=== PATIENT | female | born 1955 | race African-American/Black ===

== ENCOUNTER 2021-12-08 20:11 | Inpatient (IN) | payer OTHER, MEDICAID ==
[~2021-12-08] VITALS: Ht 167.6 cm; Wt 65.3 kg
[~2021-12-08 20:11] MED LIST: ASPI81CH43; GABA250S2 PO; METF-370 PO; METF-489 PO; OMEP20CA74 OR; PHENYTOIN SODIUM PO; RABE20TA19 PO; SIMV-8 PO
[2021-12-08] MEDS ORDERED: IOHEXOL 350 MG/ML 100ML IJ ONE (20:42)
[2021-12-08 22:53] LABS: Basophils # (auto) 0.1 10 ^3/uL (0-0.2); Basophils % (auto) 0.8 % (0.0-2.0); Eosinophils # (auto) 0.3 10 ^3/uL (0-0.8); Eosinophils % (auto) 2.6 % (0.0-7.0); Hematocrit 27.7 % (36.0-46.0); Hemoglobin 8.8 g/dL (12.2-16.2); Lymphocytes # (auto) 1.8 10 ^3/uL (0.4-5.4); Lymphocytes % (auto) 17.5 % (10.0-50.0); Mean Corpuscular Hemoglobin 26.8 pg (28.0-32.0); Mean Corpuscular Volume 83.8 fL (80.0-100.0); Monocytes # (auto) 0.8 10 ^3/uL (0-1.3); Monocytes % (auto) 8.2 % (0.0-12.0); Neutrophils # (auto) 7.1 10 ^3/uL (1.6-8.6); Neutrophils % (auto) 70.9 % (37.0-80.0); Nucleated Red Blood Cells % 0.1 %; Red Cell Distribution Width 16.4 % (11.8-14.3)
[2021-12-08 23:11] LABS: Albumin 1.8 g/dL (3.4-5.0); Potassium 4.1 mmol/L (3.5-5.1)
[2021-12-08 23:16] LABS: BUN/Creatinine Ratio 4.5; Bilirubin, Total 0.2 mg/dL (0.2-1.0); Calcium 8.1 mg/dL (8.5-10.1); Total Protein 6.1 g/dL (6.4-8.2)
[2021-12-08 23:25] LABS: INR 1.05 (0.9-1.15); Partial Thromboplastin Time 24.5 sec (23.6-33.0)
[2021-12-09] MEDS ORDERED: PIPERACILLIN-TAZOB 3.375GM 100 ML IV ONE (08:15)
[2021-12-09] MEDS ORDERED: NITROGLYCERIN 0.4 MG SL TAB SL PRN ×2 (14:30→16:30)
[2021-12-09] MEDS ORDERED: MORPHINE SULFATE INJECTION 2 MG/ML SYRG IV PRN ×2 (14:30→16:30)
[2021-12-09] MEDS ORDERED: VANCOMYCIN PER PHARMACY 0 MG IV SCH (15:45)
[2021-12-09] MEDS ORDERED: VANCOMYCIN 1GM/250ML 250 ML IV ONE (16:00)
[2021-12-09] MEDS ORDERED: DEXTROSE (50%) 50ML SYRG IV PRN (16:00)
[2021-12-09] MEDS ORDERED: FERROUS SULFATE 300 MG/5 ML ORAL LIQ PO ONE (16:15)
[2021-12-09] MEDS ORDERED: PANTOPRAZOLE 40 MG/10 ML VIAL INJ IV ONE (16:15)
[2021-12-09] MEDS ORDERED: METOCLOPRAMIDE HCL 5MG/ml INJ 2ml VIAL IV PRN (16:30)
[2021-12-09] MEDS ORDERED: ALUM & MAG HYDROX-SIMETH LIQ(MAALOX) 30 ML PO PRN (16:30)
[2021-12-09] MEDS: ACCU-CHEK COMFORT CURVE STRIP VI SCH ×2 (17:37→22:35)
[2021-12-09] MEDS: InsuLIN REG 1unit/0.01ml Soln (100units/ml) SC SCH ×2 (17:47→22:00)
[2021-12-09] MEDS: SEVELAMER 800 MG TAB PO SCH (18:49)
[2021-12-09] MEDS: DOCUSATE SOD 100 MG CAP PO PRN (18:50)
[2021-12-09] MEDS: MORPHINE SULFATE INJECTION 2 MG/ML SYRG IV PRN (18:56)
[2021-12-09 21:22] LABS: Cholesterol 88 mg/dL (< 200); HDL Cholesterol 37 mg/dL (40-59); LDL Cholesterol 27 mg/dL (< 100); Triglycerides 112 mg/dL (< 150)
[2021-12-09 22:00] VITALS: BP 153/79
[2021-12-09] MEDS: PHENYTOIN SODIUM 100 MG CAP PO SCH (22:35)
[2021-12-09] MEDS: ATORVASTATIN 20 MG TAB PO SCH (22:35)
[2021-12-09] MEDS: GABAPENTIN 300 MG CAP PO SCH (22:35)
[2021-12-09] MEDS: hydrALAZINE HCL 10 MG TAB PO SCH (22:36)
[2021-12-09] MEDS: PERITONEAL DIALYSIS 2.5% SOLN 2,000 ML IP SCH (23:12)
[2021-12-10] VITALS (7 sets, daily range): BP systolic 112–143; BP diastolic 50–70
[2021-12-10] MEDS: PERITONEAL DIALYSIS 2.5% SOLN 2,000 ML IP SCH ×6 (02:00→19:59)
[2021-12-10 05:09] LABS: Basophils # (auto) 0.1 10 ^3/uL (0-0.2); Eosinophils # (auto) 0.3 10 ^3/uL (0-0.8); Lymphocytes # (auto) 1.2 10 ^3/uL (0.4-5.4); Nucleated Red Blood Cells % 0.1 %; Red Blood Cells 2.54 10^6/uL (4.0-5.20)
[2021-12-10 05:12] LABS: Basophils % (auto) 0.8 % (0.0-2.0); Eosinophils % (auto) 3.8 % (0.0-7.0); Lymphocytes % (auto) 13.6 % (10.0-50.0); Mean Corpuscular Hemoglobin 27.4 pg (28.0-32.0); Mean Corpuscular Hgb Conc. 33.2 g/dL (32.0-36.0); Mean Corpuscular Volume 82.6 fL (80.0-100.0); Monocytes # (auto) 0.7 10 ^3/uL (0-1.3); Monocytes % (auto) 7.5 % (0.0-12.0); Neutrophils # (auto) 6.7 10 ^3/uL (1.6-8.6); Neutrophils % (auto) 74.3 % (37.0-80.0); Red Cell Distribution Width 16.5 % (11.8-14.3); White Blood Cell 9.1 10^3/uL (4.4-10.8)
[2021-12-10 05:27] LABS: INR 1.1 (0.9-1.15); Partial Thromboplastin Time 30.5 sec (23.6-33.0)
[2021-12-10 05:40] LABS: Albumin 1.6 g/dL (3.4-5.0); Anion Gap 8 (5-15); Blood Urea Nitrogen 36 mg/dL (7-18); Calcium 7.5 mg/dL (8.5-10.1); Carbon Dioxide 27 mmol/L (21-32); Chloride 93 mmol/L (98-107); Glucose 217 mg/dL (74-106); Magnesium 2.9 mg/dL (1.6-2.6); Potassium 3.8 mmol/L (3.5-5.1); Sodium 128 mmol/L (136-145)
[2021-12-10 05:47] LABS: Alanine Aminotransferase < 6 U/L (13-56); Alkaline Phosphatase 127 U/L (45-117); Aspartate Aminotransferase 13 U/L (15-37); BUN/Creatinine Ratio 4.1; Bilirubin, Total 0.3 mg/dL (0.2-1.0); GFR African American 6 mL/min; GFR Non-African American 5 mL/min; Phosphorus 2.1 mg/dL (2.5-4.90); Total Protein 5.7 g/dL (6.4-8.2); Uric Acid 5.2 mg/dL (2.6-6.0)
[2021-12-10] MEDS: InsuLIN REG 1unit/0.01ml Soln (100units/ml) SC SCH ×4 (06:02→22:01)
[2021-12-10] MEDS: hydrALAZINE HCL 10 MG TAB PO SCH ×4 (06:07→17:36)
[2021-12-10] MEDS: GABAPENTIN 300 MG CAP PO SCH ×2 (06:07→14:13)
[2021-12-10] MEDS: ACCU-CHEK COMFORT CURVE STRIP VI SCH ×4 (06:08→22:02)
[2021-12-10] MEDS: SEVELAMER 800 MG TAB PO SCH ×3 (08:00→17:36)
[2021-12-10] MEDS: FERROUS SULFATE 300 MG/5 ML ORAL LIQ PO SCH ×3 (08:20→17:36)
[2021-12-10 08:42] LABS: % Iron Saturation 28.3 % (15-50)
[2021-12-10] MEDS: MEROPENEM 500MG IVPB 50 ML IV SCH (09:36)
[2021-12-10] MEDS: PANTOPRAZOLE 40 MG/10 ML VIAL INJ IV SCH (09:36)
[2021-12-10] MEDS: ASPirin 81 mg TAB PO SCH (09:36)
[2021-12-10] MEDS ORDERED: VANCOMYCIN 500 MG in D5W 5% 100 ML IV ONE (12:00)
[2021-12-10 13:13] LABS: Hematocrit 19.8 % (36.0-46.0)
[2021-12-10 13:15] LABS: Hemoglobin 6.7 g/dL (12.2-16.2)
[2021-12-10] MEDS ORDERED: ACETAMINOPHEN 325 MG TAB PO ONE (17:15)
[2021-12-10] MEDS ORDERED: methylPREDNISolone SOD SUCC 125 MG/2 ML VL IV ONE (17:15)
[2021-12-10] MEDS ORDERED: diphenhdrAMINE HCL 50 MG/1 ML VL IV ONE (17:15)
[2021-12-10] MEDS: ATORVASTATIN 20 MG TAB PO SCH (22:01)
[2021-12-10] MEDS: PHENYTOIN SODIUM 100 MG CAP PO SCH (22:01)
[2021-12-10] MEDS: DAKINS QUARTER STR 0.125% (NaHypochlorite) 473 ML TOPICAL SOL TOP SCH (22:21)
[2021-12-11] MEDS: PERITONEAL DIALYSIS 2.5% SOLN 2,000 ML IP SCH ×6 (00:25→20:28)
[2021-12-11] MEDS: hydrALAZINE HCL 10 MG TAB PO SCH ×4 (00:27→17:56)
[2021-12-11 05:00] VITALS: BP 165/76
[2021-12-11] MEDS: InsuLIN REG 1unit/0.01ml Soln (100units/ml) SC SCH ×4 (06:19→22:10)
[2021-12-11] MEDS: ACCU-CHEK COMFORT CURVE STRIP VI SCH ×4 (06:20→22:10)
[2021-12-11] MEDS: SEVELAMER 800 MG TAB PO SCH ×3 (08:00→17:56)
[2021-12-11] MEDS: FERROUS SULFATE 300 MG/5 ML ORAL LIQ PO SCH ×3 (08:00→17:56)
[2021-12-11 09:00] VITALS: BP 158/80
[2021-12-11] MEDS: DAKINS QUARTER STR 0.125% (NaHypochlorite) 473 ML TOPICAL SOL TOP SCH ×2 (10:00→22:09)
[2021-12-11] MEDS: ASPirin 81 mg TAB PO SCH (10:00)
[2021-12-11] MEDS: GABAPENTIN 300 MG CAP PO SCH ×2 (10:00→22:09)
[2021-12-11] MEDS: MEROPENEM 500MG IVPB 50 ML IV SCH (10:00)
[2021-12-11] MEDS: PANTOPRAZOLE 40 MG/10 ML VIAL INJ IV SCH (10:00)
[2021-12-11 11:11] LABS: Basophils # (auto) 0 10 ^3/uL (0-0.2); Basophils % (auto) 0.6 % (0.0-2.0); Eosinophils # (auto) 0 10 ^3/uL (0-0.8); Hematocrit 27.6 % (36.0-46.0); Hemoglobin 9.2 g/dL (12.2-16.2); Lymphocytes # (auto) 0.6 10 ^3/uL (0.4-5.4); Lymphocytes % (auto) 10.3 % (10.0-50.0); Mean Corpuscular Hemoglobin 27.4 pg (28.0-32.0); Mean Corpuscular Hgb Conc. 33.3 g/dL (32.0-36.0); Mean Corpuscular Volume 82.4 fL (80.0-100.0); Monocytes # (auto) 0.1 10 ^3/uL (0-1.3); Monocytes % (auto) 1.2 % (0.0-12.0); Neutrophils # (auto) 5.2 10 ^3/uL (1.6-8.6); Neutrophils % (auto) 87.9 % (37.0-80.0); Nucleated Red Blood Cells % 0.1 %; Red Blood Cells 3.35 10^6/uL (4.0-5.20); Red Cell Distribution Width 16.4 % (11.8-14.3); White Blood Cell 5.9 10^3/uL (4.4-10.8)
[2021-12-11 12:34] LABS: Calcium 8.1 mg/dL (8.5-10.1); Potassium 3.9 mmol/L (3.5-5.1)
[2021-12-11] MEDS: hydrALAZINE HCL 20 MG/ML VL IV PRN (12:53)
[2021-12-11 13:00] VITALS: BP 186/81
[2021-12-11 17:00] VITALS: BP 147/63
[2021-12-11] MEDS ORDERED: VANCOMYCIN 500 MG in D5W 5% 100 ML IV ONE (17:00)
[2021-12-11 17:18] LABS: BUN/Creatinine Ratio 4.1; Calcium 7.7 mg/dL (8.5-10.1); Potassium 3.2 mmol/L (3.5-5.1)
[2021-12-11] MEDS: MORPHINE SULFATE INJECTION 2 MG/ML SYRG IV PRN (17:57)
[2021-12-11 22:00] VITALS: BP 119/48
[2021-12-11] MEDS: PHENYTOIN SODIUM 100 MG CAP PO SCH (22:09)
[2021-12-11] MEDS: ATORVASTATIN 20 MG TAB PO SCH (22:09)
[2021-12-12] MEDS: PERITONEAL DIALYSIS 2.5% SOLN 2,000 ML IP SCH ×6 (00:15→20:31)
[2021-12-12] MEDS: ACCU-CHEK COMFORT CURVE STRIP VI SCH ×4 (06:20→22:01)
[2021-12-12] MEDS: InsuLIN REG 1unit/0.01ml Soln (100units/ml) SC SCH ×4 (06:32→22:10)
[2021-12-12] MEDS: hydrALAZINE HCL 10 MG TAB PO SCH ×4 (06:32→18:00)
[2021-12-12] MEDS: SEVELAMER 800 MG TAB PO SCH ×3 (08:00→18:00)
[2021-12-12] MEDS: FERROUS SULFATE 300 MG/5 ML ORAL LIQ PO SCH ×3 (08:00→18:00)
[2021-12-12 09:00] VITALS: BP 142/67
[2021-12-12] MEDS: MEROPENEM 500MG IVPB 50 ML IV SCH (10:00)
[2021-12-12] MEDS: PANTOPRAZOLE 40 MG/10 ML VIAL INJ IV SCH (10:00)
[2021-12-12] MEDS: GABAPENTIN 300 MG CAP PO SCH ×2 (10:00→22:01)
[2021-12-12] MEDS: DAKINS QUARTER STR 0.125% (NaHypochlorite) 473 ML TOPICAL SOL TOP SCH ×2 (10:00→22:01)
[2021-12-12] MEDS: ASPirin 81 mg TAB PO SCH (10:00)
[2021-12-12 10:51] LABS: Basophils # (auto) 0.1 10 ^3/uL (0-0.2); Basophils % (auto) 1.1 % (0.0-2.0); Eosinophils # (auto) 0.6 10 ^3/uL (0-0.8); Eosinophils % (auto) 5.3 % (0.0-7.0); Hematocrit 26.4 % (36.0-46.0); Hemoglobin 8.8 g/dL (12.2-16.2); Lymphocytes # (auto) 1.7 10 ^3/uL (0.4-5.4); Lymphocytes % (auto) 15.6 % (10.0-50.0); Mean Corpuscular Hemoglobin 27.4 pg (28.0-32.0); Mean Corpuscular Hgb Conc. 33.3 g/dL (32.0-36.0); Mean Corpuscular Volume 82.4 fL (80.0-100.0); Monocytes # (auto) 0.8 10 ^3/uL (0-1.3); Monocytes % (auto) 6.9 % (0.0-12.0); Neutrophils # (auto) 7.7 10 ^3/uL (1.6-8.6); Neutrophils % (auto) 71.1 % (37.0-80.0); Red Cell Distribution Width 16.5 % (11.8-14.3); White Blood Cell 10.9 10^3/uL (4.4-10.8)
[2021-12-12 11:59] LABS: INR 1.16 (0.9-1.15)
[2021-12-12] MEDS: DOCUSATE SOD 100 MG CAP PO PRN (12:10)
[2021-12-12 13:00] VITALS: BP 125/77
[2021-12-12 17:00] VITALS: BP 141/58
[2021-12-12] MEDS: PHENYTOIN SODIUM 100 MG CAP PO SCH (21:57)
[2021-12-12 22:00] VITALS: BP 138/72
[2021-12-12] MEDS: ATORVASTATIN 20 MG TAB PO SCH (22:00)
[2021-12-13] MEDS: PERITONEAL DIALYSIS 2.5% SOLN 2,000 ML IP SCH ×6 (00:04→20:21)
[2021-12-13 05:00] VITALS: BP 126/63
[2021-12-13 05:14] LABS: Basophils # (auto) 0.1 10 ^3/uL (0-0.2); Basophils % (auto) 0.9 % (0.0-2.0); Eosinophils # (auto) 0.5 10 ^3/uL (0-0.8); Eosinophils % (auto) 5.9 % (0.0-7.0); Hematocrit 28.3 % (36.0-46.0); Hemoglobin 9.3 g/dL (12.2-16.2); Lymphocytes # (auto) 1.7 10 ^3/uL (0.4-5.4); Lymphocytes % (auto) 18.8 % (10.0-50.0); Mean Corpuscular Hemoglobin 27.4 pg (28.0-32.0); Mean Corpuscular Hgb Conc. 32.9 g/dL (32.0-36.0); Mean Corpuscular Volume 83.2 fL (80.0-100.0); Monocytes % (auto) 10.7 % (0.0-12.0); Neutrophils # (auto) 5.7 10 ^3/uL (1.6-8.6); Neutrophils % (auto) 63.7 % (37.0-80.0); White Blood Cell 8.9 10^3/uL (4.4-10.8)
[2021-12-13] MEDS: hydrALAZINE HCL 10 MG TAB PO SCH ×4 (06:00→18:00)
[2021-12-13] MEDS: InsuLIN REG 1unit/0.01ml Soln (100units/ml) SC SCH ×4 (06:33→21:51)
[2021-12-13] MEDS: ACCU-CHEK COMFORT CURVE STRIP VI SCH ×4 (06:33→21:52)
[2021-12-13] MEDS ORDERED: KETOROLAC TROMETH 30 MG/ML 1ML VIAL ONE (06:48)
[2021-12-13] MEDS ORDERED: BUPIVACAINE W/ EPINEPH 0.25% INJ 50ML MDV ONE (06:49)
[2021-12-13] MEDS ORDERED: MORPHINE SULF PF 2 MG/2 ML SYRG ONE (06:52)
[2021-12-13] MEDS: SEVELAMER 800 MG TAB PO SCH ×3 (08:00→18:00)
[2021-12-13] MEDS: FERROUS SULFATE 300 MG/5 ML ORAL LIQ PO SCH ×3 (08:00→18:00)
[2021-12-13 09:19] LABS: Potassium 3.5 mmol/L (3.5-5.1)
[2021-12-13 09:23] LABS: BUN/Creatinine Ratio 3.5; Calcium 7.3 mg/dL (8.5-10.1)
[2021-12-13] MEDS: DAKINS QUARTER STR 0.125% (NaHypochlorite) 473 ML TOPICAL SOL TOP SCH ×2 (10:00→21:53)
[2021-12-13] MEDS: MEROPENEM 500MG IVPB 50 ML IV SCH (10:00)
[2021-12-13] MEDS: PANTOPRAZOLE 40 MG/10 ML VIAL INJ IV SCH (10:00)
[2021-12-13] MEDS: ASPirin 81 mg TAB PO SCH (12:24)
[2021-12-13] MEDS: GABAPENTIN 300 MG CAP PO SCH ×2 (12:24→21:53)
[2021-12-13] MEDS: DOCUSATE SOD 100 MG CAP PO PRN (12:25)
[2021-12-13] MEDS: PHENYTOIN SODIUM 100 MG CAP PO SCH (21:52)
[2021-12-13] MEDS: ATORVASTATIN 20 MG TAB PO SCH (21:53)
[2021-12-13 22:00] VITALS: BP 140/53
[2021-12-14] MEDS: PERITONEAL DIALYSIS 2.5% SOLN 2,000 ML IP SCH ×6 (00:31→20:03)
[2021-12-14 05:00] VITALS: BP 121/55
[2021-12-14] MEDS: hydrALAZINE HCL 10 MG TAB PO SCH ×4 (05:08→18:50)
[2021-12-14 05:55] LABS: Basophils # (auto) 0.1 10 ^3/uL (0-0.2); Eosinophils # (auto) 0.5 10 ^3/uL (0-0.8); Eosinophils % (auto) 6.2 % (0.0-7.0); Hemoglobin 7.8 g/dL (12.2-16.2)
[2021-12-14 05:58] LABS: Hematocrit 23.4 % (36.0-46.0); Lymphocytes # (auto) 1.4 10 ^3/uL (0.4-5.4); Lymphocytes % (auto) 16.5 % (10.0-50.0); Mean Corpuscular Hemoglobin 27.6 pg (28.0-32.0); Mean Corpuscular Hgb Conc. 33.5 g/dL (32.0-36.0); Mean Corpuscular Volume 82.5 fL (80.0-100.0); Monocytes % (auto) 11.1 % (0.0-12.0); Neutrophils # (auto) 5.6 10 ^3/uL (1.6-8.6); Neutrophils % (auto) 65.2 % (37.0-80.0); Red Blood Cells 2.83 10^6/uL (4.0-5.20); Red Cell Distribution Width 16.6 % (11.8-14.3); White Blood Cell 8.6 10^3/uL (4.4-10.8)
[2021-12-14 06:03] LABS: Albumin 1.3 g/dL (3.4-5.0); Calcium 7.4 mg/dL (8.5-10.1)
[2021-12-14 06:06] LABS: BUN/Creatinine Ratio 3.3; Bilirubin, Total 0.2 mg/dL (0.2-1.0); Total Protein 4.8 g/dL (6.4-8.2)
[2021-12-14 06:24] LABS: Potassium 2.9 mmol/L (3.5-5.1)
[2021-12-14] MEDS: ACCU-CHEK COMFORT CURVE STRIP VI SCH ×4 (06:35→22:54)
[2021-12-14] MEDS: InsuLIN REG 1unit/0.01ml Soln (100units/ml) SC SCH ×4 (06:37→22:00)
[2021-12-14 08:00] VITALS: BP 101/58
[2021-12-14] MEDS: SEVELAMER 800 MG TAB PO SCH ×4 (08:00→18:46)
[2021-12-14] MEDS: FERROUS SULFATE 300 MG/5 ML ORAL LIQ PO SCH ×4 (08:00→18:46)
[2021-12-14] MEDS: POTASSIUM CHL 20 Meq TABLET PO ONE ×2 (08:00→08:58)
[2021-12-14] MEDS: PANTOPRAZOLE 40 MG/10 ML VIAL INJ IV SCH (08:57)
[2021-12-14] MEDS: MEROPENEM 500MG IVPB 50 ML IV SCH (08:58)
[2021-12-14] MEDS: GABAPENTIN 300 MG CAP PO SCH ×4 (08:58→21:48)
[2021-12-14] MEDS: ASPirin 81 mg TAB PO SCH ×2 (08:58→09:20)
[2021-12-14 09:00] VITALS: BP 101/58
[2021-12-14] MEDS: DAKINS QUARTER STR 0.125% (NaHypochlorite) 473 ML TOPICAL SOL TOP SCH ×2 (09:00→21:48)
[2021-12-14] MEDS ORDERED: VANCOMYCIN 500 MG in D5W 5% 100 ML IV ONE (11:45)
[2021-12-14 13:00] VITALS: BP 103/59
[2021-12-14] MEDS: DOCUSATE SOD 100 MG CAP PO PRN (13:15)
[2021-12-14] MEDS: POTASSIUM CHL 20MEQ/50ML 50 ML IV SCH ×2 (14:03→15:40)
[2021-12-14 15:24] LABS: Hepatitis A Ab IgM Negative; Hepatitis B Core IgM Negative; Hepatitis C Antibody Negative (Negative)
[2021-12-14 17:00] VITALS: BP 140/63
[2021-12-14] MEDS: MORPHINE SULFATE INJECTION 2 MG/ML SYRG IV PRN (21:02)
[2021-12-14] MEDS: PHENYTOIN SODIUM 100 MG CAP PO SCH (21:48)
[2021-12-14] MEDS: ATORVASTATIN 20 MG TAB PO SCH (21:48)
[2021-12-15] VITALS (10 sets, daily range): BP systolic 71–132; BP diastolic 43–68
[2021-12-15] MEDS: PERITONEAL DIALYSIS 2.5% SOLN 2,000 ML IP SCH ×6 (00:12→20:42)
[2021-12-15] MEDS: hydrALAZINE HCL 10 MG TAB PO SCH ×4 (00:22→18:00)
[2021-12-15 06:31] LABS: Albumin 1.4 g/dL (3.4-5.0); BUN/Creatinine Ratio 2.9; Calcium 7.6 mg/dL (8.5-10.1); Potassium 3.1 mmol/L (3.5-5.1)
[2021-12-15 06:34] LABS: Bilirubin, Total 0.2 mg/dL (0.2-1.0); Total Protein 4.9 g/dL (6.4-8.2)
[2021-12-15] MEDS: ACCU-CHEK COMFORT CURVE STRIP VI SCH ×4 (06:48→21:55)
[2021-12-15] MEDS: InsuLIN REG 1unit/0.01ml Soln (100units/ml) SC SCH ×4 (06:50→22:01)
[2021-12-15] MEDS: SEVELAMER 800 MG TAB PO SCH ×4 (08:00→18:03)
[2021-12-15] MEDS: FERROUS SULFATE 300 MG/5 ML ORAL LIQ PO SCH ×4 (08:00→18:04)
[2021-12-15] MEDS: ASPirin 81 mg TAB PO SCH (09:52)
[2021-12-15] MEDS: GABAPENTIN 300 MG CAP PO SCH ×2 (09:52→21:54)
[2021-12-15] MEDS: MEROPENEM 500MG IVPB 50 ML IV SCH (09:52)
[2021-12-15] MEDS: PANTOPRAZOLE 40 MG/10 ML VIAL INJ IV SCH (09:52)
[2021-12-15] MEDS: DAKINS QUARTER STR 0.125% (NaHypochlorite) 473 ML TOPICAL SOL TOP SCH ×2 (10:00→22:00)
[2021-12-15] MEDS ORDERED: TETRACAINE 1% INJ 2 ML VIAL IJ ONE (11:49)
[2021-12-15] MEDS ORDERED: fentaNYL CITRATE 100 MCG/2 ML VL ONE (11:52)
[2021-12-15] MEDS ORDERED: MIDAZOLAM HCL 2MG/2ML 2ml VIAL (1mg/ml) ONE (11:52)
[2021-12-15] MEDS ORDERED: MORPHINE SULF PF 2 MG/2 ML SYRG ONE (11:56)
[2021-12-15] MEDS ORDERED: PROPOFOL 10 MG/ML 20 ML IV ONE (12:33)
[2021-12-15] MEDS ORDERED: PHENYLEPHRINE HCL 10 MG/ML VL ONE ×3 (13:53→13:55)
[2021-12-15] MEDS ORDERED: PHENYLEPHRINE IV 250 ML IV SCH (14:00)
[2021-12-15 14:21] LABS: Basophils # (auto) 0.1 10 ^3/uL (0-0.2); Basophils % (auto) 0.6 % (0.0-2.0); Eosinophils # (auto) 0.7 10 ^3/uL (0-0.8); Eosinophils % (auto) 7.1 % (0.0-7.0); Lymphocytes # (auto) 2.1 10 ^3/uL (0.4-5.4); Lymphocytes % (auto) 22.2 % (10.0-50.0); Mean Corpuscular Hemoglobin 27.8 pg (28.0-32.0); Mean Corpuscular Volume 84.2 fL (80.0-100.0); Monocytes # (auto) 0.9 10 ^3/uL (0-1.3); Monocytes % (auto) 9.6 % (0.0-12.0); Neutrophils # (auto) 5.6 10 ^3/uL (1.6-8.6); Neutrophils % (auto) 60.5 % (37.0-80.0); Red Blood Cells 2.14 10^6/uL (4.0-5.20); Red Cell Distribution Width 16.4 % (11.8-14.3); White Blood Cell 9.3 10^3/uL (4.4-10.8)
[2021-12-15] MEDS ORDERED: ONDANSETRON HCL 4 MG/2 ML VIAL ONE (14:25)
[2021-12-15 14:56] LABS: BUN/Creatinine Ratio 2.9; Calcium 6.7 mg/dL (8.5-10.1)
[2021-12-15 15:23] LABS: Potassium 2.7 mmol/L (3.5-5.1)
[2021-12-15] MEDS ORDERED: POTASSIUM CHL 10MEQ/50ML 50 ML IV ONE (15:30)
[2021-12-15] MEDS ORDERED: ALBUMIN 25% 50 ML IV ONE (18:45)
[2021-12-15] MEDS ORDERED: SODIUM CHLORIDE 0.9% 500 ML IV ONE (18:45)
[2021-12-15 20:07] LABS: Eosinophils # (auto) 0.1 10 ^3/uL (0-0.8); Hemoglobin 7.8 g/dL (12.2-16.2); Lymphocytes # (auto) 0.9 10 ^3/uL (0.4-5.4)
[2021-12-15 20:09] LABS: Basophils # (auto) 0.1 10 ^3/uL (0-0.2); Basophils % (auto) 0.5 % (0.0-2.0); Eosinophils % (auto) 0.9 % (0.0-7.0); Hematocrit 23.6 % (36.0-46.0); Lymphocytes % (auto) 8.8 % (10.0-50.0); Mean Corpuscular Hemoglobin 28.2 pg (28.0-32.0); Mean Corpuscular Hgb Conc. 33.1 g/dL (32.0-36.0); Mean Corpuscular Volume 85.1 fL (80.0-100.0); Monocytes # (auto) 0.6 10 ^3/uL (0-1.3); Neutrophils % (auto) 83.8 % (37.0-80.0); Red Blood Cells 2.77 10^6/uL (4.0-5.20); Red Cell Distribution Width 15.8 % (11.8-14.3); White Blood Cell 10.8 10^3/uL (4.4-10.8)
[2021-12-15] MEDS: PHENYTOIN SODIUM 100 MG CAP PO SCH (20:53)
[2021-12-15] MEDS: ATORVASTATIN 20 MG TAB PO SCH (21:53)
[2021-12-16] VITALS (9 sets, daily range): BP systolic 94–135; BP diastolic 47–82
[2021-12-16] MEDS: PERITONEAL DIALYSIS 2.5% SOLN 2,000 ML IP SCH ×6 (00:38→20:35)
[2021-12-16] MEDS ORDERED: ALBUMIN 25% 100 ML IV ONE (04:30)
[2021-12-16 05:13] LABS: Monocytes # (auto) 1.3 10 ^3/uL (0-1.3); Nucleated Red Blood Cells % 0.1 %; Red Cell Distribution Width 15.9 % (11.8-14.3)
[2021-12-16 05:14] LABS: Basophils # (auto) 0.1 10 ^3/uL (0-0.2); Basophils % (auto) 0.7 % (0.0-2.0); Eosinophils # (auto) 0.5 10 ^3/uL (0-0.8); Eosinophils % (auto) 5.2 % (0.0-7.0); Hematocrit 17.8 % (36.0-46.0); Lymphocytes # (auto) 1.4 10 ^3/uL (0.4-5.4); Lymphocytes % (auto) 13.6 % (10.0-50.0); Mean Corpuscular Hemoglobin 28.6 pg (28.0-32.0); Mean Corpuscular Hgb Conc. 34.3 g/dL (32.0-36.0); Mean Corpuscular Volume 83.4 fL (80.0-100.0); Monocytes % (auto) 12.4 % (0.0-12.0); Neutrophils # (auto) 6.9 10 ^3/uL (1.6-8.6); Neutrophils % (auto) 68.1 % (37.0-80.0); Red Blood Cells 2.13 10^6/uL (4.0-5.20); White Blood Cell 10.1 10^3/uL (4.4-10.8)
[2021-12-16 05:26] LABS: Calcium 7.3 mg/dL (8.5-10.1); Potassium 3.8 mmol/L (3.5-5.1)
[2021-12-16 05:38] LABS: BUN/Creatinine Ratio 3.1
[2021-12-16 05:45] LABS: Hemoglobin 6.1 g/dL (12.2-16.2)
[2021-12-16] MEDS: hydrALAZINE HCL 10 MG TAB PO SCH ×4 (05:48→17:30)
[2021-12-16] MEDS: InsuLIN REG 1unit/0.01ml Soln (100units/ml) SC SCH ×4 (06:34→21:00)
[2021-12-16] MEDS: ACCU-CHEK COMFORT CURVE STRIP VI SCH ×4 (06:43→21:00)
[2021-12-16] MEDS: SEVELAMER 800 MG TAB PO SCH ×4 (08:00→17:31)
[2021-12-16] MEDS: FERROUS SULFATE 300 MG/5 ML ORAL LIQ PO SCH ×4 (08:00→17:30)
[2021-12-16] MEDS: ACETAMINOPHEN 325 MG TAB PO PRN (08:20)
[2021-12-16] MEDS: MEROPENEM 500MG IVPB 50 ML IV SCH (09:47)
[2021-12-16] MEDS: diphenhdrAMINE HCL 50 MG/1 ML VL IV PRN (09:47)
[2021-12-16] MEDS: LORazepam 2MG/ML-1ML VIAL IV PRN (09:47)
[2021-12-16] MEDS: GABAPENTIN 300 MG CAP PO SCH ×2 (10:00→21:00)
[2021-12-16] MEDS: DAKINS QUARTER STR 0.125% (NaHypochlorite) 473 ML TOPICAL SOL TOP SCH ×2 (10:00→20:39)
[2021-12-16] MEDS: PANTOPRAZOLE 40 MG/10 ML VIAL INJ IV SCH (10:00)
[2021-12-16] MEDS: ASPirin 81 mg TAB PO SCH (10:00)
[2021-12-16] MEDS ORDERED: VANCOMYCIN 500 MG in D5W 5% 100 ML IV ONE (14:00)
[2021-12-16] MEDS: ATORVASTATIN 20 MG TAB PO SCH (21:00)
[2021-12-17] VITALS (7 sets, daily range): BP systolic 108–148; BP diastolic 57–71
[2021-12-17] MEDS: PERITONEAL DIALYSIS 2.5% SOLN 2,000 ML IP SCH ×6 (00:14→20:11)
[2021-12-17] MEDS: LORazepam 2MG/ML-1ML VIAL IV PRN (01:37)
[2021-12-17] MEDS: MORPHINE SULFATE INJECTION 2 MG/ML SYRG IV PRN ×3 (02:21→23:03)
[2021-12-17] MEDS: diphenhdrAMINE HCL 50 MG/1 ML VL IV PRN ×2 (03:52→23:09)
[2021-12-17 05:43] LABS: Hemoglobin 7.3 g/dL (12.2-16.2)
[2021-12-17 05:49] LABS: Basophils # (auto) 0.1 10 ^3/uL (0-0.2); Basophils % (auto) 0.4 % (0.0-2.0); Eosinophils % (auto) 8.1 % (0.0-7.0); Hematocrit 22.1 % (36.0-46.0); Lymphocytes # (auto) 1.4 10 ^3/uL (0.4-5.4); Lymphocytes % (auto) 11.1 % (10.0-50.0); Mean Corpuscular Hemoglobin 28.1 pg (28.0-32.0); Monocytes # (auto) 1.4 10 ^3/uL (0-1.3); Monocytes % (auto) 11.2 % (0.0-12.0); Neutrophils # (auto) 8.5 10 ^3/uL (1.6-8.6); Neutrophils % (auto) 69.2 % (37.0-80.0); Red Cell Distribution Width 15.7 % (11.8-14.3); White Blood Cell 12.3 10^3/uL (4.4-10.8)
[2021-12-17 06:15] LABS: Albumin 1.9 g/dL (3.4-5.0); Calcium 7.6 mg/dL (8.5-10.1); Potassium 3.6 mmol/L (3.5-5.1)
[2021-12-17 06:18] LABS: BUN/Creatinine Ratio 2.7
[2021-12-17 06:21] LABS: Bilirubin, Total 0.3 mg/dL (0.2-1.0); Total Protein 4.7 g/dL (6.4-8.2)
[2021-12-17] MEDS: InsuLIN REG 1unit/0.01ml Soln (100units/ml) SC SCH ×4 (06:29→22:00)
[2021-12-17] MEDS: hydrALAZINE HCL 10 MG TAB PO SCH ×4 (06:29→17:44)
[2021-12-17] MEDS: ACCU-CHEK COMFORT CURVE STRIP VI SCH ×4 (06:34→22:03)
[2021-12-17] MEDS: SEVELAMER 800 MG TAB PO SCH ×3 (08:00→17:44)
[2021-12-17] MEDS: FERROUS SULFATE 300 MG/5 ML ORAL LIQ PO SCH ×3 (08:00→17:44)
[2021-12-17] MEDS: DAKINS QUARTER STR 0.125% (NaHypochlorite) 473 ML TOPICAL SOL TOP SCH ×2 (08:13→22:00)
[2021-12-17] MEDS: PANTOPRAZOLE 40 MG/10 ML VIAL INJ IV SCH (08:13)
[2021-12-17] MEDS: GABAPENTIN 300 MG CAP PO SCH ×2 (08:13→22:02)
[2021-12-17] MEDS: ASPirin 81 mg TAB PO SCH (08:13)
[2021-12-17] MEDS: MEROPENEM 500MG IVPB 50 ML IV SCH (08:13)
[2021-12-17] MEDS: ACETAMINOPHEN 325 MG TAB PO PRN (14:28)
[2021-12-17] MEDS: ATORVASTATIN 20 MG TAB PO SCH (22:02)
[2021-12-17] MEDS: LORazepam 0.5 MG TAB PO PRN ×2 (23:05→23:09)
[2021-12-18] VITALS (9 sets, daily range): BP systolic 120–170; BP diastolic 53–75
[2021-12-18] MEDS: PERITONEAL DIALYSIS 2.5% SOLN 2,000 ML IP SCH ×7 (00:14→23:56)
[2021-12-18] MEDS: hydrALAZINE HCL 10 MG TAB PO SCH ×5 (00:16→23:57)
[2021-12-18 05:50] LABS: Basophils # (auto) 0.1 10 ^3/uL (0-0.2); Basophils % (auto) 0.6 % (0.0-2.0); Eosinophils # (auto) 0.5 10 ^3/uL (0-0.8); Eosinophils % (auto) 4.7 % (0.0-7.0); Hemoglobin 8.8 g/dL (12.2-16.2); Lymphocytes # (auto) 1.7 10 ^3/uL (0.4-5.4); Mean Corpuscular Hemoglobin 28.7 pg (28.0-32.0); Mean Corpuscular Hgb Conc. 33.6 g/dL (32.0-36.0); Mean Corpuscular Volume 85.2 fL (80.0-100.0); Monocytes # (auto) 1.4 10 ^3/uL (0-1.3); Monocytes % (auto) 11.9 % (0.0-12.0); Neutrophils # (auto) 7.8 10 ^3/uL (1.6-8.6); Neutrophils % (auto) 67.8 % (37.0-80.0); Red Blood Cells 3.05 10^6/uL (4.0-5.20); Red Cell Distribution Width 15.4 % (11.8-14.3); White Blood Cell 11.5 10^3/uL (4.4-10.8)
[2021-12-18] MEDS: InsuLIN REG 1unit/0.01ml Soln (100units/ml) SC SCH ×4 (06:31→21:05)
[2021-12-18] MEDS: ACCU-CHEK COMFORT CURVE STRIP VI SCH ×4 (06:33→21:04)
[2021-12-18 06:49] LABS: BUN/Creatinine Ratio 2.9; Calcium 7.4 mg/dL (8.5-10.1)
[2021-12-18 07:28] LABS: Potassium 2.8 mmol/L (3.5-5.1)
[2021-12-18] MEDS: SEVELAMER 800 MG TAB PO SCH ×3 (08:06→17:27)
[2021-12-18] MEDS: PANTOPRAZOLE 40 MG/10 ML VIAL INJ IV SCH (08:06)
[2021-12-18] MEDS: ASPirin 81 mg TAB PO SCH (08:06)
[2021-12-18] MEDS: GABAPENTIN 300 MG CAP PO SCH ×2 (08:06→21:11)
[2021-12-18] MEDS: DAKINS QUARTER STR 0.125% (NaHypochlorite) 473 ML TOPICAL SOL TOP SCH ×2 (08:06→21:12)
[2021-12-18] MEDS: MEROPENEM 500MG IVPB 50 ML IV SCH (08:06)
[2021-12-18] MEDS: FERROUS SULFATE 300 MG/5 ML ORAL LIQ PO SCH ×3 (08:06→17:26)
[2021-12-18] MEDS: POTASSIUM CHL 10MEQ/50ML 50 ML IV SCH ×6 (09:45→14:15)
[2021-12-18] MEDS ORDERED: POTASSIUM CHL 10MEQ/50ML 50 ML IV ONE (17:51)
[2021-12-18] MEDS: ATORVASTATIN 20 MG TAB PO SCH (21:11)
[2021-12-18] MEDS: hydrALAZINE HCL 20 MG/ML VL IV PRN (21:43)
[2021-12-19] MEDS: PERITONEAL DIALYSIS 2.5% SOLN 2,000 ML IP SCH ×5 (04:15→20:00)
[2021-12-19 05:00] VITALS: BP 140/61
[2021-12-19 05:41] LABS: Potassium 3.5 mmol/L (3.5-5.1)
[2021-12-19 05:51] LABS: Albumin 1.6 g/dL (3.4-5.0); BUN/Creatinine Ratio 3.1; Bilirubin, Total 0.4 mg/dL (0.2-1.0); Calcium 7.4 mg/dL (8.5-10.1); Total Protein 4.9 g/dL (6.4-8.2)
[2021-12-19] MEDS: InsuLIN REG 1unit/0.01ml Soln (100units/ml) SC SCH ×4 (07:00→22:09)
[2021-12-19] MEDS: hydrALAZINE HCL 10 MG TAB PO SCH ×3 (07:30→17:22)
[2021-12-19] MEDS: ACCU-CHEK COMFORT CURVE STRIP VI SCH ×4 (07:31→22:11)
[2021-12-19] MEDS: DAKINS QUARTER STR 0.125% (NaHypochlorite) 473 ML TOPICAL SOL TOP SCH ×2 (07:50→22:11)
[2021-12-19] MEDS: FERROUS SULFATE 300 MG/5 ML ORAL LIQ PO SCH ×3 (08:02→18:27)
[2021-12-19] MEDS: SEVELAMER 800 MG TAB PO SCH ×3 (08:02→18:27)
[2021-12-19] MEDS: ASPirin 81 mg TAB PO SCH (08:03)
[2021-12-19 09:00] VITALS: BP 129/63
[2021-12-19] MEDS: MEROPENEM 500MG IVPB 50 ML IV SCH (09:47)
[2021-12-19] MEDS: GABAPENTIN 300 MG CAP PO SCH ×2 (09:47→22:04)
[2021-12-19] MEDS: PANTOPRAZOLE 40 MG/10 ML VIAL INJ IV SCH (09:47)
[2021-12-19] MEDS: DOCUSATE SOD 100 MG CAP PO PRN (12:23)
[2021-12-19 12:50] VITALS: BP 123/61
[2021-12-19] MEDS: ACETAMINOPHEN 325 MG TAB PO PRN (14:53)
[2021-12-19 16:42] VITALS: BP 97/48
[2021-12-19] MEDS: ATORVASTATIN 20 MG TAB PO SCH (22:05)
[2021-12-19 22:15] VITALS: BP 128/65
[2021-12-20] MEDS: hydrALAZINE HCL 10 MG TAB PO SCH ×4 (00:25→17:42)
[2021-12-20] MEDS: PERITONEAL DIALYSIS 2.5% SOLN 2,000 ML IP SCH ×6 (00:29→20:04)
[2021-12-20 05:00] VITALS: BP 137/74
[2021-12-20 05:57] LABS: Chloride 102 mmol/L (98-107); Potassium 3.3 mmol/L (3.5-5.1); Sodium 138 mmol/L (136-145)
[2021-12-20 06:02] LABS: Alanine Aminotransferase < 6 U/L (13-56); Albumin 1.6 g/dL (3.4-5.0); Alkaline Phosphatase 101 U/L (45-117); Anion Gap 4 (5-15); Aspartate Aminotransferase 11 U/L (15-37); BUN/Creatinine Ratio 3.2; Bilirubin, Total 0.2 mg/dL (0.2-1.0); Blood Urea Nitrogen 17 mg/dL (7-18); Calcium 7.7 mg/dL (8.5-10.1); Carbon Dioxide 32 mmol/L (21-32); GFR African American 10 mL/min; GFR Non-African American 9 mL/min; Glucose 135 mg/dL (74-106); Total Protein 5.2 g/dL (6.4-8.2)
[2021-12-20] MEDS: InsuLIN REG 1unit/0.01ml Soln (100units/ml) SC SCH ×4 (06:19→21:39)
[2021-12-20] MEDS: ACCU-CHEK COMFORT CURVE STRIP VI SCH ×4 (06:24→22:00)
[2021-12-20] MEDS: DAKINS QUARTER STR 0.125% (NaHypochlorite) 473 ML TOPICAL SOL TOP SCH (07:29)
[2021-12-20] MEDS: FERROUS SULFATE 300 MG/5 ML ORAL LIQ PO SCH ×3 (08:15→17:30)
[2021-12-20] MEDS: SEVELAMER 800 MG TAB PO SCH ×3 (08:15→17:30)
[2021-12-20] MEDS: ASPirin 81 mg TAB PO SCH (08:15)
[2021-12-20 09:00] VITALS: BP 123/60
[2021-12-20] MEDS: PANTOPRAZOLE 40 MG/10 ML VIAL INJ IV SCH (10:39)
[2021-12-20] MEDS: GABAPENTIN 300 MG CAP PO SCH ×2 (10:39→21:31)
[2021-12-20] MEDS: MEROPENEM 500MG IVPB 50 ML IV SCH (10:39)
[2021-12-20] MEDS: DOCUSATE SOD 100 MG CAP PO PRN (10:40)
[2021-12-20] MEDS: ACETAMINOPHEN 325 MG TAB PO PRN (10:40)
[2021-12-20] MEDS: LORazepam 0.5 MG TAB PO PRN (10:40)
[2021-12-20 13:00] VITALS: BP 141/70
[2021-12-20 16:35] VITALS: BP 112/60
[2021-12-20] MEDS: ATORVASTATIN 20 MG TAB PO SCH (21:31)
[2021-12-20] MEDS: PHENYTOIN SODIUM 100 MG CAP PO SCH (21:32)
[2021-12-20 22:00] VITALS: BP 129/65
[2021-12-21] MEDS: DAKINS QUARTER STR 0.125% (NaHypochlorite) 473 ML TOPICAL SOL TOP SCH ×3 (00:30→21:18)
[2021-12-21] MEDS: PERITONEAL DIALYSIS 2.5% SOLN 2,000 ML IP SCH ×6 (00:31→20:56)
[2021-12-21] MEDS: hydrALAZINE HCL 10 MG TAB PO SCH ×4 (00:38→17:05)
[2021-12-21 05:05] VITALS: BP 99/49
[2021-12-21] MEDS: InsuLIN REG 1unit/0.01ml Soln (100units/ml) SC SCH ×4 (07:03→22:05)
[2021-12-21] MEDS: ACCU-CHEK COMFORT CURVE STRIP VI SCH ×4 (07:04→22:05)
[2021-12-21] MEDS: ASPirin 81 mg TAB PO SCH (08:11)
[2021-12-21] MEDS: SEVELAMER 800 MG TAB PO SCH ×3 (08:11→17:05)
[2021-12-21 08:54] VITALS: BP 113/61
[2021-12-21 09:51] LABS: Basophils # (auto) 0.1 10 ^3/uL (0-0.2); Basophils % (auto) 0.9 % (0.0-2.0); Eosinophils % (auto) 10.2 % (0.0-7.0); Hematocrit 30.8 % (36.0-46.0); Lymphocytes # (auto) 1.3 10 ^3/uL (0.4-5.4); Lymphocytes % (auto) 13.5 % (10.0-50.0); Mean Corpuscular Hemoglobin 28.4 pg (28.0-32.0); Mean Corpuscular Hgb Conc. 32.5 g/dL (32.0-36.0); Mean Corpuscular Volume 87.3 fL (80.0-100.0); Monocytes # (auto) 0.9 10 ^3/uL (0-1.3); Monocytes % (auto) 8.8 % (0.0-12.0); Neutrophils # (auto) 6.4 10 ^3/uL (1.6-8.6); Neutrophils % (auto) 66.6 % (37.0-80.0); Red Blood Cells 3.53 10^6/uL (4.0-5.20); Red Cell Distribution Width 15.5 % (11.8-14.3); White Blood Cell 9.7 10^3/uL (4.4-10.8)
[2021-12-21 09:58] LABS: Albumin 1.5 g/dL (3.4-5.0); Calcium 7.7 mg/dL (8.5-10.1); Potassium 3.4 mmol/L (3.5-5.1)
[2021-12-21 10:01] LABS: BUN/Creatinine Ratio 3.2; Bilirubin, Total 0.2 mg/dL (0.2-1.0); Total Protein 5.2 g/dL (6.4-8.2)
[2021-12-21] MEDS: MEROPENEM 500MG IVPB 50 ML IV SCH (10:31)
[2021-12-21] MEDS: FERROUS SULFATE 300 MG/5 ML ORAL LIQ PO SCH ×3 (10:31→17:05)
[2021-12-21] MEDS: PANTOPRAZOLE 40 MG/10 ML VIAL INJ IV SCH (10:31)
[2021-12-21] MEDS: GABAPENTIN 300 MG CAP PO SCH ×2 (10:33→21:17)
[2021-12-21] MEDS: ACETAMINOPHEN 325 MG TAB PO PRN (10:52)
[2021-12-21] MEDS: LORazepam 0.5 MG TAB PO PRN (10:52)
[2021-12-21 13:00] VITALS: BP 156/81
[2021-12-21] MEDS ORDERED: VANCOMYCIN 500 MG in D5W 5% 100 ML IV ONE (14:00)
[2021-12-21 17:05] VITALS: BP 112/52
[2021-12-21] MEDS: PHENYTOIN SODIUM 100 MG CAP PO SCH (21:17)
[2021-12-21] MEDS: ATORVASTATIN 20 MG TAB PO SCH (21:17)
[2021-12-21 22:00] VITALS: BP 112/59
[2021-12-22] MEDS: PERITONEAL DIALYSIS 2.5% SOLN 2,000 ML IP SCH ×6 (00:41→20:16)
[2021-12-22] MEDS: hydrALAZINE HCL 10 MG TAB PO SCH ×4 (00:57→16:44)
[2021-12-22 04:17] VITALS: BP 117/61
[2021-12-22] MEDS: ACCU-CHEK COMFORT CURVE STRIP VI SCH ×4 (06:19→22:00)
[2021-12-22] MEDS: InsuLIN REG 1unit/0.01ml Soln (100units/ml) SC SCH ×4 (06:19→21:42)
[2021-12-22 09:00] VITALS: BP 119/67
[2021-12-22] MEDS: FERROUS SULFATE 300 MG/5 ML ORAL LIQ PO SCH ×3 (09:08→16:45)
[2021-12-22] MEDS: MEROPENEM 500MG IVPB 50 ML IV SCH (09:08)
[2021-12-22] MEDS: ASPirin 81 mg TAB PO SCH (09:09)
[2021-12-22] MEDS: PANTOPRAZOLE 40 MG/10 ML VIAL INJ IV SCH (09:09)
[2021-12-22] MEDS: GABAPENTIN 300 MG CAP PO SCH ×2 (09:09→21:42)
[2021-12-22] MEDS: SEVELAMER 800 MG TAB PO SCH ×3 (09:09→16:45)
[2021-12-22 09:12] LABS: Albumin 1.4 g/dL (3.4-5.0); Calcium 7.7 mg/dL (8.5-10.1); Potassium 3.3 mmol/L (3.5-5.1)
[2021-12-22 09:15] LABS: BUN/Creatinine Ratio 3.5; Bilirubin, Total 0.2 mg/dL (0.2-1.0)
[2021-12-22] MEDS: DAKINS QUARTER STR 0.125% (NaHypochlorite) 473 ML TOPICAL SOL TOP SCH ×2 (10:00→22:00)
[2021-12-22] MEDS ORDERED: VANCOMYCIN 500 MG in D5W 5% 100 ML IV ONE (11:10)
[2021-12-22 13:00] VITALS: BP 126/56
[2021-12-22 17:00] VITALS: BP 91/53
[2021-12-22] MEDS: HYDROcodone-ACET 10/325MG TAB PO PRN (19:01)
[2021-12-22] MEDS: PHENYTOIN SODIUM 100 MG CAP PO SCH (21:41)
[2021-12-22] MEDS: ATORVASTATIN 20 MG TAB PO SCH (21:41)
[2021-12-22 22:00] VITALS: BP 95/57
[2021-12-23] MEDS: PERITONEAL DIALYSIS 2.5% SOLN 2,000 ML IP SCH ×5 (00:23→16:23)
[2021-12-23 05:10] VITALS: BP 121/58
[2021-12-23] MEDS: hydrALAZINE HCL 10 MG TAB PO SCH ×4 (06:16→17:10)
[2021-12-23] MEDS: InsuLIN REG 1unit/0.01ml Soln (100units/ml) SC SCH ×3 (06:18→17:00)
[2021-12-23] MEDS: ACCU-CHEK COMFORT CURVE STRIP VI SCH ×3 (06:21→17:02)
[2021-12-23] MEDS: FERROUS SULFATE 300 MG/5 ML ORAL LIQ PO SCH ×3 (08:25→17:09)
[2021-12-23] MEDS: SEVELAMER 800 MG TAB PO SCH ×3 (08:25→17:03)
[2021-12-23 09:00] VITALS: BP 102/51
[2021-12-23 09:03] LABS: Albumin 1.4 g/dL (3.4-5.0); BUN/Creatinine Ratio 3.6; Bilirubin, Total 0.2 mg/dL (0.2-1.0); Calcium 7.3 mg/dL (8.5-10.1); Total Protein 4.6 g/dL (6.4-8.2)
[2021-12-23] MEDS ORDERED: LEVO750T8 PO (09:06)
[2021-12-23] MEDS ORDERED: HYDR-4798 PO (09:06)
[2021-12-23 09:40] LABS: Potassium 2.8 mmol/L (3.5-5.1)
[2021-12-23] MEDS: PANTOPRAZOLE 40 MG/10 ML VIAL INJ IV SCH (10:42)
[2021-12-23] MEDS: MEROPENEM 500MG IVPB 50 ML IV SCH (10:42)
[2021-12-23] MEDS: GABAPENTIN 300 MG CAP PO SCH (10:43)
[2021-12-23] MEDS: ASPirin 81 mg TAB PO SCH (10:43)
[2021-12-23] MEDS: DAKINS QUARTER STR 0.125% (NaHypochlorite) 473 ML TOPICAL SOL TOP SCH (10:45)
[2021-12-23] MEDS ORDERED: VANCOMYCIN 500 MG in D5W 5% 100 ML IV ONE (12:00)
[2021-12-23] MEDS: POTASSIUM CHL 10MEQ/50ML 50 ML IV SCH ×6 (12:36→17:34)
[2021-12-23 13:00] VITALS: BP 114/62
[2021-12-23 16:52] VITALS: BP 121/64
[2021-12-23] MEDS: HYDROcodone-ACET 10/325MG TAB PO PRN (17:04)
== END 2021-12-23 19:30 | disposition home health service (06) | DRG 239 ==
LOC: ER 20:22 → TELE 12-09 14:18 → TELE-CENTR 12-09 21:10
PROVIDERS: ADMIT Hospitalist; ATTEND Family Medicine
PROC: 30233N1 Transfusion of Nonautologous Red Blood Cells into Peripheral Vein, Percutaneous Approach (ICD-10-PCS; 2021-12-10)
PROC: 0Y6H0Z1 Detachment at Right Lower Leg, High, Open Approach (ICD-10-PCS; principal; 2021-12-15 11:44)
DX: E11.52 Type 2 diabetes mellitus with diabetic peripheral angiopathy with gangrene (principal); N18.6 End stage renal disease; E43 Unspecified severe protein-calorie malnutrition; I16.9 Hypertensive crisis, unspecified; D62 Acute posthemorrhagic anemia; I12.0 Hypertensive chronic kidney disease with stage 5 chronic kidney disease or end stage renal disease; R64 Cachexia; I25.10 Atherosclerotic heart disease of native coronary artery without angina pectoris; I82.432 Acute embolism and thrombosis of left popliteal vein; K21.9 Gastro-esophageal reflux disease without esophagitis; J44.9 Chronic obstructive pulmonary disease, unspecified; K29.70 Gastritis, unspecified, without bleeding; Z20.822 Contact with and (suspected) exposure to COVID-19; E11.22 Type 2 diabetes mellitus with diabetic chronic kidney disease; D63.1 Anemia in chronic kidney disease; E78.5 Hyperlipidemia, unspecified; E87.6 Hypokalemia; G40.909 Epilepsy, unspecified, not intractable, without status epilepticus; L08.9 Local infection of the skin and subcutaneous tissue, unspecified; F32.A Depression, unspecified; Z79.899 Other long term (current) drug therapy; Z99.2 Dependence on renal dialysis; Z82.49 Family history of ischemic heart disease and other diseases of the circulatory system; Z82.5 Family history of asthma and other chronic lower respiratory diseases; Z90.710 Acquired absence of both cervix and uterus; Z95.1 Presence of aortocoronary bypass graft; Z88.5 Allergy status to narcotic agent; Z68.23 Body mass index [BMI] 23.0-23.9, adult
CPT/HCPCS: 36415; 71045; 73560; 73590; 73620; 73706; 78582; 80048; 80053; 80061; 80074; 80185; 80202; 82306; 82565; 82962; 83036; 83540; 83550; 83605; 83735; 83880; 84100; 84443; 84484; 84550; 85014; 85018; 85025; 85379; 85610; 85730; 86850; 86900; 86901; 86920; 87040; 87426; 93005; 93306; 93926; 93970; 96365; 96366; 97110; 97116; 97530; C9113; G0378; J1815; J1885; J2185; J2250; J2405; J2543; J2704; J7060; P9047

== ENCOUNTER → 2023-12-21 | Outpatient (CLI) | payer OTHER, MEDICAID ==
[~2023-12-21] MED LIST changes: -GABA250S2 PO; +GABA250S7 PO; +HYDR-4798 PO; +LEVO750T8 PO; -SIMV-8 PO; +SIMV20TA20 PO
[2023-12-21 18:48] LABS: Body Fluid White Blood Cells 115 CUMM (0-200)
[2023-12-21 18:49] LABS: Body Fluid Polymorphonuclear 15 % (0-25); Body Fluid Red Blood Cells 35 CUMM (0-2000)
[2023-12-22 14:06] LABS: Albumin, Body Fluid 3.1 g/dL (Not Estab.); Protein, Body Fluid 4.9 g/dL (.)
== END | disposition home or self-care (01) ==
LOC: XYW 13:13
PROVIDERS: ATTEND Internal Medicine Gastroenterology
DX: R18.8 Other ascites (principal); F32.A Depression, unspecified; I12.0 Hypertensive chronic kidney disease with stage 5 chronic kidney disease or end stage renal disease; E11.22 Type 2 diabetes mellitus with diabetic chronic kidney disease; N18.6 End stage renal disease; Z99.2 Dependence on renal dialysis; Z87.01 Personal history of pneumonia (recurrent); Z98.51 Tubal ligation status; Z82.49 Family history of ischemic heart disease and other diseases of the circulatory system; Z82.5 Family history of asthma and other chronic lower respiratory diseases; Z83.3 Family history of diabetes mellitus; Z88.6 Allergy status to analgesic agent; Z79.899 Other long term (current) drug therapy; Z79.84 Long term (current) use of oral hypoglycemic drugs; Z79.82 Long term (current) use of aspirin; Z90.710 Acquired absence of both cervix and uterus; Z98.891 History of uterine scar from previous surgery; Z98.890 Other specified postprocedural states; Z79.891 Long term (current) use of opiate analgesic
CPT/HCPCS: 49083; 76705; 87205; 89051; C1729; 76942